=== PATIENT | male | born 1995 | race Two or more races ===

== ENCOUNTER 2024-09-02 00:20 | Emergency (ER) | payer MEDICAID ==
[~2024-09-02] VITALS: Ht 172.7 cm; Wt 79.4 kg
[2024-09-02 01:09] LABS: APPEARANCE,URINE CLEAR (CLEAR); BILIRUBIN,URINE 1+ (NEGATIVE); BLOOD, URINE NEGATIVE Ery/uL (NEGATIVE); COLOR,URINE YELLOW (YELLOW); KETONES,URINE NEGATIVE (NEGATIVE); LEUKOCYTE ESTERASE ,URINE NEGATIVE (NEGATIVE); NITRITE, URINE NEGATIVE (NEGATIVE); PROTEIN,URINE TRACE mg/dl (NEGATIVE); UGLUCOSE NEGATIVE (NEGATIVE); UROBILINOGEN,URINE 0.2 EU/dL (0.2)
[2024-09-02 01:15] LABS: BASOPHILS % (AUTO) 0.4 % (0.0-2.0); EOSINOPHILS # (AUTO) 0.1 K/uL (0.0-0.7); HEMATOCRIT 39 % (39-51); HEMOGLOBIN 13.1 g/dL (13.5-17.5); LYMPHOCYTES # (AUTO) 2.2 K/uL (0.8-4.8); LYMPHOCYTES % (AUTO) 19.7 % (20.0-44.0); MEAN CORPUSCULAR HEMOGLOBIN 27 PG (26.0-33.0); MEAN CORPUSCULAR HGB CONC 33 g/dl (31.0-36.0); MEAN CORPUSCULAR VOLUME 81 fL (80-96); MONOCYTES # (AUTO) 0.7 K/uL (0.1-1.30); MONOCYTES % (AUTO) 6.3 % (2.0-12.0); NEUTROPHILS # (AUTO) 8.2 K/uL (1.8-8.9); NEUTROPHILS % (AUTO) 72.6 % (43.0-81.0); PLATELET COUNT (AUTO) 272 K/uL (150-450); RED BLOOD CELL COUNT(AUTO) 4.83 MIL/uL (4.5-6.0); RED CELL DISTRIBUTION WIDTH 13.6 % (11.5-15.0); WHITE BLOOD COUNT (AUTO) 11.3 K/uL (4.3-11.0)
[2024-09-02 01:28] LABS: CALCIUM, SERUM 9.5 mg/dL (8.5-10.1)
[2024-09-02 01:34] LABS: ADD URINE CULTURE NO; BACTERIA,URINE None seen /HPF (None Seen); MUCUS,URINE Few /LPF (None Seen); RBC,URINE NONE SEEN /HPF (0-2); SQUAMOUS EPITHELIAL CELL,UR None Seen /HPF (None Seen); WBC,URINE NONE SEEN /HPF (0-3)
[2024-09-02 01:36] LABS: ALBUMIN 3.8 g/dL (3.4-5.0); BILIRUBIN,TOTAL 0.6 mg/dL (0.2-1.0); TOTAL PROTEIN, SERUM 8.8 g/dL (6.4-8.2)
[2024-09-02] MEDS ORDERED: DOXY100T2 PO (04:13)
[2024-09-02 04:24] VITALS: BP 132/88; TEMP 99.5; O2SAT 100
[2024-09-02] MEDS ORDERED: DOXYCYCLINE HYCLATE (100 MG) 100 MG TABLET PO ONE (04:30)
== END 2024-09-02 04:24 | disposition home or self-care (01) ==
LOC: ER 00:23
DX: N43.3 Hydrocele, unspecified (principal); N45.1 Epididymitis
CPT/HCPCS: 36415; 76870-TC; 80053-TC; 81001; 85025-TC; 87040-TC

== ENCOUNTER 2024-09-13 17:17 | Emergency (ER) | payer MEDICAID ==
[~2024-09-13] VITALS: Ht 172.7 cm; Wt 79.4 kg
[~2024-09-13 17:17] MED LIST: DOXY100T2 PO
[2024-09-13 17:33] VITALS: BP 118/82; TEMP 98.4; O2SAT 99
[2024-09-13] MEDS ORDERED: IBUP-1490 PO (17:53)
[2024-09-13] MEDS ORDERED: LEVO750T46 PO (17:53)
[2024-09-13] MEDS ORDERED: CEFTRIAXONE 1 G VIAL ONE (17:58)
[2024-09-13] MEDS ORDERED: LIDOCAINE /MPF 1% VIAL 5 ML VIAL ONE (17:59)
[2024-09-13] MEDS: CEFTRIAXONE 1 G VIAL IM ONE (18:00)
== END 2024-09-13 18:12 | disposition home or self-care (01) ==
LOC: ER 17:17
DX: N45.1 Epididymitis (principal)
CPT/HCPCS: 99283; 96372; J0696; J3490